=== PATIENT | female | born 1955 | race Caucasian/White ===

== ENCOUNTER 2018-03-29 08:19 | Observation (INO) | payer OTHER ==
[~2018-03-29] VITALS: Ht 157.5 cm; Wt 66.1 kg
--- NOTE | 2018-03-29 08:35 | NUR ---
assumed care of pt from [place]. pt upright on gurney awake & comfortable, responds approp to staff, NAD, comfort measures provided, call light within reach.
[2018-03-29 08:54] LABS: BASOPHILS # (AUTO) 0.02 x10^3/uL (0-0.1); BASOPHILS % (AUTO) 0 % (0-1); EOSINOPHILS # (AUTO) 0.08 x10^3/uL (0-0.4); EOSINOPHILS % (AUTO) 1 % (1-7); LYMPHOCYTES # (AUTO) 0.77 x10^3/uL (1-3.4); LYMPHOCYTES % (AUTO) 11 % (22-44); MD NO; MEAN CORPUSCULAR HEMOGLOBIN 31.2 pg (27.0-34.8); MEAN CORPUSCULAR HGB CONC 34.1 g/dL (32.4-35.8); MEAN CORPUSCULAR VOLUME 91.6 fL (80-100); MEAN PLATELET VOLUME 8.1 fL (7.4-10.4); MONOCYTES # (AUTO) 0.33 x10^3/uL (0.2-0.8); MONOCYTES % (AUTO) 5 % (2-9); NEUTROPHILS % (AUTO) 83 % (42-75); PLATELET COUNT 201 x10^3/uL (130-400); RED BLOOD COUNT 4.82 x10^6/uL (3.82-5.3); RED CELL DISTRIBUTION WIDTH 13.9 % (9.6-15.2)
[2018-03-29 09:00] LABS: ANION GAP 8 mmol/L (5-15); CALCIUM 8.7 mg/dL (8.5-10.1); CHLORIDE 111 mmol/L (98-107); CREATININE 0.83 mg/dL (0.55-1.02)
--- NOTE | 2018-03-29 09:03 | NUR ---
pt upright on gurney awake & comfortable, responds approp to staff, NAD, comfort measures provided, at BS, call light within reach. pt to XR
--- NOTE | 2018-03-29 09:23 | NUR ---
pt returned from XR
--- NOTE | 2018-03-29 10:03 | NUR ---
pt laying on gurney awake & comfortable, responds approp to staff, NAD, comfort measures provided, call light within reach.
[2018-03-29] MEDS ORDERED: HYDROcodone/APAP 5/325 TABLET ONE (10:19)
[2018-03-29] MEDS ORDERED: HYDROcodone/APAP 5/325 TABLET PO ONE (10:30)
--- NOTE | 2018-03-29 10:59 | NUR ---
pt continues to lay on gurney awake & more comfortable after pain med, responds approp to staff, NAD, comfort measures provided, call light within reach.
--- NOTE | 2018-03-29 11:58 | NUR ---
pt laying on gurney awake & comfortable, responds approp to staff, NAD, comfort measures provided, call light within reach.
[2018-03-29] MEDS ORDERED: CYCLOBENZAPRINE 10 MG TABLET ONE (12:44)
--- NOTE | 2018-03-29 12:57 | NUR ---
pt continues to lay on gurney awake & comfortable, responds approp to staff, NAD, comfort measures provided, call light within reach.
[2018-03-29] MEDS ORDERED: CYCLOBENZAPRINE 10 MG TABLET PO SCH (13:00)
[2018-03-29] MEDS ORDERED: KETOROLAC 30 MG/1 ML IVPush ONE (13:30)
[2018-03-29] MEDS ORDERED: KETOROLAC 30 MG/1 ML ONE (13:47)
[2018-03-29] MEDS ORDERED: HYDROmorphone 2 MG/ML, 1ML ONE (13:47)
[2018-03-29] MEDS ORDERED: BACLOFEN 10 MG TABLET PO PRN (14:00)
[2018-03-29] MEDS ORDERED: KETOROLAC 30 MG/1 ML IV PRN (14:00)
[2018-03-29] MEDS ORDERED: morphine SULFATE 10 MG/ML, 1ML IVPush PRN (14:00)
[2018-03-29] MEDS ORDERED: IBUPROFEN 600 MG TABLET PO PRN (14:00)
[2018-03-29] MEDS ORDERED: ACETAMINOPHEN 325 MG TABLET PO PRN (14:00)
[2018-03-29] MEDS ORDERED: hydrALAzine 20 MG/ML, 1ML IVPush PRN (14:00)
[2018-03-29] MEDS ORDERED: ONDANSETRON ODT 4 MG PO PRN (14:00)
[2018-03-29] MEDS ORDERED: ONDANSETRON 2MG/ML, 2ML IVPush PRN (14:00)
[2018-03-29] MEDS ORDERED: HYDROmorphone 1 MG/ML, 1ML IM ONE (14:00)
--- NOTE | 2018-03-29 14:10 | NUR ---
seen by rere
--- NOTE | 2018-03-29 14:16 | NUR ---
Pt to be admitted to medical, room 367. Report called to Elizabeth. Addendum: 03/29/18 at 1417 by STEVEN Pt to be admitted to medical, room 376. Report called to Elizabeth.
[2018-03-29] MEDS ORDERED: LIDODERM 5% PATCH TD SCH (14:30)
[2018-03-29 14:40] VITALS: BP 133/81
[2018-03-29] MEDS ORDERED: CYCLOBENZAPRINE 10 MG TABLET PO ONE (15:00)
[2018-03-29] MEDS: HYDROcodone/APAP 5/325 TABLET PO PRN ×2 (16:13→20:22)
[2018-03-29] MEDS ORDERED: ESCI5TAB7 PO (16:34)
[2018-03-29 20:09] VITALS: BP 124/72
[2018-03-30 01:07] VITALS: BP 124/72
[2018-03-30] MEDS: HYDROcodone/APAP 5/325 TABLET PO PRN ×3 (01:13→09:30)
[2018-03-30 06:54] VITALS: BP 166/89
[2018-03-30] MEDS ORDERED: LIDO700A20 TD (08:43)
[2018-03-30] MEDS ORDERED: GABA100C PO (08:43)
[2018-03-30] MEDS ORDERED: IBUP-1222 PO (08:43)
[2018-03-30] MEDS ORDERED: BACL-19 PO (08:43)
== END 2018-03-30 12:45 | disposition home or self-care (01) ==
LOC: ED 10:37 → INTOOBSV 13:47 → EDIP 13:47 → 3NE 14:27
PROVIDERS: ADMIT Hospitalist; ATTEND Hospitalist
DX: T58.91XA Toxic effect of carbon monoxide from unspecified source, accidental (unintentional), initial encounter (principal); R55 Syncope and collapse; M54.5 Low back pain; F41.9 Anxiety disorder, unspecified; Z82.0 Family history of epilepsy and other diseases of the nervous system; Z90.710 Acquired absence of both cervix and uterus; Y92.89 Other specified places as the place of occurrence of the external cause; Y99.8 Other external cause status
CPT/HCPCS: 36415; 72110; 72148; 80048; 82375; 85025; 93005; 96372; 96374; 97166; 97535; 99284; G0378; G8978; G8979; G8980; J1170; J1885